=== PATIENT | male | born 1965 | race Caucasian/White ===

== ENCOUNTER 2020-07-05 04:44 | Emergency (ER) | payer OTHER, SELFPAY ==
[2020-07-05 04:47] VITALS: BP 163/96; PULSE 83; RESP 20; TEMP 36.1; O2SAT 97
--- NOTE | 2020-07-05 05:11 | ED.BACK ---
HPI - Back Pain/Injury General Chief Complaint: Back Pain/Injury Stated Complaint: sciatic pain Time Seen by Provider: 07/05/20 05:02 History of Present Illness HPI Narrative: Low back pain for 2 days. Located in the left lower back. Radiates down the left leg. Associated with tingling in the leg. Was walking to the bathroom this morning and felt like the left leg gave out and fell to the ground. He reports taking Aleve, ibuprofen, and meloxicam for the pain. No fever, trauma. Related Data Home Medications Medication Instructions Recorded Confirmed meloxicam 15 mg tablet 15 mg PO DAILY 09/11/19 09/23/19 ranitidine HCl [Zantac 75] 75 mg PO PRN PRN 09/11/19 09/23/19 Allergies Allergy/AdvReac Type Severity Reaction Status Date / Time No Known Allergies Allergy Verified 07/05/20 04:50 Review of Systems Review of Systems: All systems reviewed & are unremarkable except as noted in HPI and below Constitutional: Constitutional: Denies fever(s) Cardiovascular: Cardiovascular: Denies chest pain Respiratory: Respiratory: Denies dyspnea Gastrointestinal: Gastrointestinal: Denies abdominal pain, Denies nausea and Denies vomiting Genitourinary: Genitourinary: Denies hematuria and Denies dysuria Musculoskeletal: Musculoskeletal: Reports back pain Neurologic: Reports numbness and Denies weakness PMFSH Past Medical History Medical History Arthritis Chronic hip pain Degenerative joint disease (DJD) of hip GERD (gastroesophageal reflux disease) Social History Social History Smoking status: Former smoker Smoking end date: 09/23/05 Alcohol intake: current Gender identity (if verbalized by the patient): Male Exam Const: General: no acute distress and alert Nutritional Appearance: well nourished Orientation/consciousness: patient oriented x3 HENMT: Head: normal to inspection Resp: Effort & Inspection: normal respiratory effort Auscultation: clear to auscultation bilaterally Cardio: Rate: regular rate Rhythm: regular rhythm Back/Spine/Pelvis: Other: Left lateral lower back tenderness Skin: General skin exam: normal color Neuro: General: patient oriented x3, moves all extremities, no focal motor deficits and CN's II-XI intact bilaterally Speech: normal speech Extrem: General: normal to inspection and no edema Course Vital Signs Vital signs: Vital Signs Temperature 36.1 C L 07/05/20 04:47 Pulse Rate 83 07/05/20 04:47 Respiratory Rate 07/05/20 04:47 Blood Pressure 163/96 H 07/05/20 04:47 Pulse Oximetry 97 07/05/20 04:47 Temperature 36.1 C L 07/05/20 04:47 Pulse Rate 83 07/05/20 04:47 Respiratory Rate 07/05/20 04:47 Blood Pressure 163/96 H 07/05/20 04:47 Pulse Oximetry 97 07/05/20 04:47 MDM - Back Pain/Injury Differential Diagnosis Differential diagnosis: Likely lumbar radiculopathy, sciatica and strain of lumbar region Medical Records Attestation: I reviewed the patient's medical records. Discharge Plan Discharge Clinical Impression: Low back pain Qualifiers: Chronicity: acute Back pain laterality: left Sciatica presence: with sciatica Sciatica laterality: sciatica of left side Qualified Code(s): M54.42 - Lumbago with sciatica, left side Patient Disposition: Home, Self-Care Condition: Stable Instructions: Antibiotic Form, Acute Low Back Pain (ED), Lower Back Exercises (ED) Prescriptions: New diazepam [Valium] 2 mg tablet 2 mg PO TID PRN (Reason: muscle spasm) Qty: 15 RF: 0 methylprednisolone [Medrol (Saad)] 4 mg tablets,dose pack See Rx Instructions .ROUTE .COMPLEX Qty: 21 RF: 0 No Action meloxicam 15 mg tablet 15 mg PO DAILY RF: 0 ranitidine HCl [Zantac 75] 75 mg Tablet 75 mg PO PRN PRN (Reason: Acid Reflux) RF: 0 hydrocodone-acetaminophen [Bryan] 5-325 mg tablet 1 tablet PO Q6H PRN (Reaso
[2020-07-05 07:30] VITALS: BP 130/74; PULSE 71; RESP 16
== END 2020-07-05 07:30 | disposition home or self-care (01) ==
PROVIDERS: Emergency Provider Emergency Medicine; PCP Family Medicine
DX: M54.42 Lumbago with sciatica, left side (principal); M16.10 Unilateral primary osteoarthritis, unspecified hip; K21.9 Gastro-esophageal reflux disease without esophagitis; Z87.891 Personal history of nicotine dependence
CPT/HCPCS: 96372; 99284; A9270; J1100; J3360

== ENCOUNTER 2020-07-19 13:53 | Outpatient (CLI) | payer OTHER, SELFPAY ==
--- NOTE | ~2020-07-19 | MR_ITS ---
EXAMINATION: MR knee LT wo con DATE: 07/19/2020 14:34 INDICATION: Medial left knee pain and swelling post fall TECHNIQUE: Magnetic resonance imaging (MRI) of the left knee was performed without intravenous contra st. Sequences included coronal PD-weighted FSE, coronal PD-weighted FS FSE, sagittal T2-weighted FSE , sagittal PD-weighted FS FSE and axial PD weighted fat saturated FSE. COMPARISON: Left knee radiographs dated 07/09/2020 FINDINGS: Medial compartment: Medial meniscus is normal. Articular cartilage is normal. Lateral compartment: Lateral meniscus is normal. Deep chondral fissure at the posterior medial aspect of the lateral tibia l plateau. Articular cartilage is otherwise normal. Patellofemoral compartment: Partial-thickness chondral fissuring involving less than 50% the cartilage thickness at the medial pa tellar facet. Shallow fissuring with chondral surface irregularity at the apical ridge and medial asp ect of the lateral facet. Trochlear cartilage is normal. Ligaments and tendons: Anterior cruciate ligament maintains a normal angle relative to normal. Line but with increased signa l and some architectural distortion along the femoral footplate of both the anteromedial and posterol ateral bundles suggesting at least partial tear. The posterior cruciate ligament is normal. Prominent thickening, increased signal and architectural distortion at the proximal aspect of the medial colla teral ligament consistent with at least high-grade partial, potentially complete tear. The fibular co llateral ligament is normal. Quadriceps tendon is normal. Mild increased signal along bands of magic angle artifact extending across the otherwise normal patellar tendon. The visualized medial and later al hamstring tendons as well as the iliotibial band are normal. Fluid: Small to moderate-sized left knee joint effusion. No loose osteochondral bodies identified. Osseous/other: There is marrow edema without a definitive low signal intensity fracture line at the posterior margin of the lateral patellar facet consistent with likely bone contusion. Small region of likely reactive marrow edema underlying the medial epicondylar footplate of the medial collateral ligament. No fract ure or pathologic marrow replacing process. Prominent subcutaneous edema along the anteromedial aspec t of the knee likely related to the tear of the medial collateral ligament. IMPRESSION: 1. At least partial tear of the proximal anterior cruciate ligament and high-grade partial if not com plete tear of the proximal medial collateral ligament. 2. Bone contusion without discrete fracture line along the posterior rim of the lateral tibial platea u likely related to anterior subluxation injury. 3. Regions of moderate grade chondromalacia with chondral fissuring at the patella and along the post erior medial aspect of the lateral tibial plateau. 4. Likely reactive moderate sized left knee joint effusion. Reviewed, dictated and finalized at location A. IMPRESSION: 1. At least partial tear of the proximal anterior cruciate ligament and high-gr jackie partial if not complete tear of the proximal medial collateral ligament. 2. Bone contusion without discrete fracture line along the posterior rim of the lateral tibial plateau likely related to anterior subluxation injury. 3. Regions of moderate grade chondromalacia with chondral fissuring at the lopez lla and along the posterior medial aspect of the lateral tibial plateau. 4. Likely reactive moderate sized left knee joint effusion.
== END 2020-07-19 13:54 ==
PROVIDERS: Visit Provider Nurse Practitioner Family
DX: S89.90XA Unspecified injury of unspecified lower leg, initial encounter (principal); X58.XXXA Exposure to other specified factors, initial encounter; M25.462 Effusion, left knee
CPT/HCPCS: 73721

== ENCOUNTER 2020-09-01 16:12 | Outpatient (CLI) | payer OTHER, SELFPAY ==
--- NOTE | ~2020-09-01 | MR_ITS ---
EXAMINATION: MR lumbar spine wo con DATE: 09/01/2020 18:01 INDICATION: Low back pain. TECHNIQUE: Magnetic resonance imaging (MRI) of the lumbar spine was performed without intravenous con trast. Sequences included sagittal T2-weighted FSE, sagittal T2-weighted FS FSE, sagittal STIR FSE, s agittal T1-weighted FSE, and axial T2-weighted FSE. COMPARISON: None FINDINGS: Bone alignment is normal. There are changes of anterior fusion procedure at L5-S1 with inte rbody devices. There are Schmorl's nodes at T11-T12 and T12-L1. There is mildly decreased disc height at L3-L4 and L4-L5. The distal spinal cord signal intensity is normal. The conus medullaris is at L1 . The following disc levels are specifically discussed: L1-L2: The disc does not extend beyond the endplate margin. There is no facet joint osteoarthritis. T here is no neural foraminal stenosis. There is no central canal stenosis. L2-L3: The disc is bulging and has an annular fissure. There is moderate right and mild left facet dottie int osteoarthritis. There is mild bilateral neural foraminal stenosis. There is mild central canal st enosis. L3-L4: The disc is bulging. There is mild bilateral facet joint osteoarthritis. There is mild bilater al neural foraminal stenosis. There is mild central canal stenosis. L4-L5: The disc is bulging with superimposed left subarticular extrusion with 2.3 cm superior extensi on to the pedicular level and mass effect on the exiting L4 nerve root. There is moderate bilateral f acet joint osteoarthritis. There is mild right and moderate left neural foraminal stenosis. There is mild central canal stenosis. L5-S1: There is mild bilateral facet joint osteoarthritis. There is mild left neural foraminal stenos is. There is no central canal stenosis. IMPRESSION: 1. Moderate lumbar spondylosis. Of note, an extrusion at L4-L5 exerts mass effect on the left L4 nerv e root. 2. Anterior fusion procedure at L5-S1. Reviewed, dictated and finalized at location B. [employer] IMPRESSION: 1. Moderate lumbar spondylosis. Of note, an extrusion at L4-L5 exerts mass effe ct on the left L4 nerve root. 2. Anterior fusion procedure at L5-S1.
== END 2020-09-01 16:13 ==
PROVIDERS: Visit Provider Nurse Practitioner Family
DX: M47.896 Other spondylosis, lumbar region (principal); M51.26 Other intervertebral disc displacement, lumbar region; Z98.1 Arthrodesis status
CPT/HCPCS: 72148

== ENCOUNTER 2023-09-21 09:50 | Outpatient (CLI) | payer OTHER, SELFPAY ==
[2023-09-21 12:58] LABS: Basophils Percent Auto 0.5 % (0.2-1.2); Eosinophils Absolute Auto 0.1 K/mm3 (0-0.3); Eosinophils Percent Auto 1.2 % (0-4.4); Hematocrit 51.4 % (42.0-52.0); Hemoglobin 16.7 g/dL (14.0-18.0); Immature Granulocyte Absolute 0.01 K/mm3 (0.00-0.031); Immature Granulocyte Percent A 0.2 % (0-0.5); Lymphocytes Absolute Auto 1.16 K/mm3 (0.9-3.2); Lymphocytes Percent Auto 28.6 % (18.3-44.2); Mean Corpuscular HGB Conc 32.5 g/dl (32-36); Mean Corpuscular Hemoglobin 30.7 pg (26-34); Mean Corpuscular Volume 94.5 fl (80-100); Mean Platelet Volume 9.5 fl (7.4-10.4); Monocytes Absolute Auto 0.3 K/mm3 (0.1-0.6); Monocytes Percent Auto 8.1 % (2.6-8.5); Neutrophils Absolute Auto 2.5 K/mm3 (1.3-6.7); Neutrophils Percent Auto 61.4 % (45.5-73.1); Platelet Count Result 211 k/mm3 (150-375); Red Blood Count 5.44 M/mm3 (4.6-6.20); White Blood Count 4.1 K/mm3 (4.5-10.0)
[2023-09-21 13:04] LABS: Alanine Aminotransferase 76 U/L (6-50); Albumin Level 4.9 g/dL (3.5-5.1); Alkaline Phosphatase 73 U/L (38-126); Anion Gap 11 mmol/L (8-16); Aspartate Amino Transferase 52 U/L (17-59); Bilirubin,Total 0.7 mg/dL (0.2-1.3); Blood Urea Nitrogen 24 mg/dL (9-20); Calcium 9.7 mg/dL (8.4-10.2); Carbon Dioxide 25 mmol/L (22-30); Chloride 103 mmol/L (98-107); Cholesterol 249 mg/dL (0-200); Estimated Glomerular Filt Rate > 60; Glucose 120 mg/dL (65-110); HDL Direct 32 mg/dL; Potassium 4.6 mmol/L (3.4-5.0); Sodium 139 mmol/L (137-145); Triglycerides 58 mg/dL (<150)
[2023-09-21 13:15] LABS: LDL Cholesterol Direct 181 mg/dL
[2023-09-21 13:33] LABS: Prostate Specific Antigen 2.7 ng/mL (< OR = 4.0)
[2023-09-25 18:13] LABS: Testosterone Free 247.8 pg/mL (35.0-155.0); Testosterone Total 1475 ng/dL (250-1100)
[2023-09-27 21:28] LABS: Estradiol, Ultrasensitive 16 pg/mL (< OR = 29)
== END 2023-09-21 09:51 | disposition home or self-care (01) ==
LOC: ANHGOSHLAB 09:54
DX: E78.2 Mixed hyperlipidemia (principal); N52.8 Other male erectile dysfunction; D75.1 Secondary polycythemia; Z79.890 Hormone replacement therapy
CPT/HCPCS: 36415; 80053; 80061; 82670; 84153; 84402; 84403; 85025